=== PATIENT | female | born 1995 | race Caucasian/White ===

== ENCOUNTER 2021-05-07 19:03 | Emergency (ER) | payer SELFPAY ==
[~2021-05-07] VITALS: Ht 160 cm; Wt 65.9 kg
[2021-05-07] MEDS ORDERED: PRENTAB53 PO (19:19)
[2021-05-07 20:20] LABS: BASO % 0.1 % (0.0-1.0); EOS # 0.1 10^3/uL (0.0-0.5); EOS % 0.4 % (0.0-3.0); HEMATOCRIT 31.6 % (36.0-47.0); HEMOGLOBIN 11.4 g/dl (12.0-15.5); LYMPH # 1.6 10^3/uL (1.5-5.0); LYMPH % 10.1 % (24.0-44.0); MEAN CORPUSCULAR HEMOGLOBIN 30.9 pg (27.0-33.0); MEAN CORPUSCULAR HGB CONC 36.1 g/dl (32.0-36.5); MEAN CORPUSCULAR VOLUME 85.6 fl (80.0-96.0); MONO # 0.9 10^3/uL (0.0-0.8); MONO % 5.8 % (2.0-8.0); NEUTROPHILS # 12.8 10^3/uL (1.5-8.5); NEUTROPHILS % 83.2 % (36.0-66.0); PLATELET COUNT, AUTOMATED 239 10^3/uL (150-450); RED BLOOD COUNT 3.69 10^6/uL (4.00-5.40); WHITE BLOOD COUNT 15.4 10^3/uL (4.0-10.0)
[2021-05-07 20:59] LABS: BLOOD UREA NITROGEN 7 MG/DL (7-18); CALCIUM LEVEL 9.5 MG/DL (8.5-10.1); CARBON DIOXIDE LEVEL 24 MEQ/L (21-32); CHLORIDE LEVEL 107 MEQ/L (98-107); CREATININE FOR GFR 0.46 MG/DL (0.55-1.30); GLOMERULAR FILTRATION RATE > 60.0 (>60); GLUCOSE, FASTING 95 MG/DL (70-100); HCG, SERUM QUANTITATIVE 38954 MIU/ML; POTASSIUM SERUM 3.8 MEQ/L (3.5-5.1); SODIUM LEVEL 139 MEQ/L (136-145)
[2021-05-07] MEDS ORDERED: NS 1,000 ML IV ONE (21:10)
[2021-05-07 21:37] VITALS: BP 118/73
[2021-05-07] MEDS ORDERED: MACR100C43 PO (22:46)
== END 2021-05-07 23:23 | disposition home or self-care (01) ==
LOC: M ED 19:03
DX: O20.0 Threatened abortion (principal); N93.9 Abnormal uterine and vaginal bleeding, unspecified; N39.0 Urinary tract infection, site not specified; Z3A.14 14 weeks gestation of pregnancy

== ENCOUNTER 2021-07-30 06:19 | Inpatient (IN) | payer SELFPAY ==
[2021-07-30] VITALS (19 sets, daily range): BP systolic 90–159; BP diastolic 51–90
[~2021-07-30] VITALS: Ht 160 cm; Wt 75.0 kg
[~2021-07-30 06:19] MED LIST: MACR100C43 PO; PRENTAB53 PO
[2021-07-30] MEDS ORDERED: LR 1,000 ML IV ONE (06:35)
[2021-07-30 07:00] LABS: HEMATOCRIT 33.1 % (36.0-47.0); HEMOGLOBIN 11.7 g/dl (12.0-15.5); MEAN CORPUSCULAR HEMOGLOBIN 32.5 pg (27.0-33.0); MEAN CORPUSCULAR HGB CONC 35.3 g/dl (32.0-36.5); MEAN CORPUSCULAR VOLUME 91.9 fl (80.0-96.0); PLATELET COUNT, AUTOMATED 163 10^3/uL (150-450); WHITE BLOOD COUNT 10.8 10^3/uL (4.0-10.0)
[2021-07-30 07:16] LABS: INR 0.87; PROTHROMBIN TIME 12.2 SECONDS (12.7-14.5)
[2021-07-30 07:32] LABS: ALBUMIN 3.1 GM/DL (3.2-5.2); ALT/SGPT 17 U/L (12-78); BILIRUBIN,TOTAL 0.2 MG/DL (0.2-1.0); BLOOD UREA NITROGEN 5 MG/DL (7-18); CALCIUM LEVEL 8.8 MG/DL (8.5-10.1); CARBON DIOXIDE LEVEL 23 MEQ/L (21-32); CHLORIDE LEVEL 109 MEQ/L (98-107); CREATININE FOR GFR 0.42 MG/DL (0.55-1.30); GLOMERULAR FILTRATION RATE > 60.0 (>60); GLUCOSE, FASTING 111 MG/DL (70-100); POTASSIUM SERUM 3.6 MEQ/L (3.5-5.1); SODIUM LEVEL 140 MEQ/L (136-145); TOTAL PROTEIN 6.7 GM/DL (6.4-8.2)
[2021-07-30] MEDS: BETAMETHASONE SOLUSPAN 6MG/ML 5ML VIAL (J0702 PER 3MG) IM SCH (07:43)
[2021-07-30] MEDS ORDERED: NIFEdipine 10 MG CAP PO ONE (08:50)
[2021-07-30] MEDS: LR 1,000 ML IV SCH ×2 (09:30→15:53)
[2021-07-30] MEDS ORDERED: NIFEdipine 10 MG CAP PO SCH ×2 (11:15→13:00)
[2021-07-30] MEDS ORDERED: BUTORPHANOL 2 MG/ML INJ (J0595) IV ONE (12:40)
[2021-07-30] MEDS ORDERED: PROMETHAZINE 25MG/ML 1ML VIAL IV PRN (12:40)
[2021-07-30] MEDS: NIFEdipine 10 MG CAP PO SCH ×3 (15:53→23:14)
[2021-07-31] VITALS (21 sets, daily range): BP systolic 91–146; BP diastolic 51–75
[2021-07-31] MEDS: LR 1,000 ML IV SCH ×3 (02:12→17:15)
[2021-07-31] MEDS: NIFEdipine 10 MG CAP PO SCH ×6 (03:20→23:34)
[2021-07-31] MEDS: BETAMETHASONE SOLUSPAN 6MG/ML 5ML VIAL (J0702 PER 3MG) IM SCH (07:55)
[2021-07-31] MEDS ORDERED: ACETAMINOPHEN 500 MG TAB PO PRN (18:25)
[2021-08-01] VITALS (15 sets, daily range): BP systolic 79–115; BP diastolic 50–69
[2021-08-01 06:42] LABS: HEMATOCRIT 32.5 % (36.0-47.0); HEMOGLOBIN 10.9 g/dl (12.0-15.5); MEAN CORPUSCULAR HEMOGLOBIN 31.7 pg (27.0-33.0); MEAN CORPUSCULAR HGB CONC 33.5 g/dl (32.0-36.5); MEAN CORPUSCULAR VOLUME 94.5 fl (80.0-96.0); PLATELET COUNT, AUTOMATED 170 10^3/uL (150-450); RED BLOOD COUNT 3.44 10^6/uL (4.00-5.40)
== END 2021-08-01 11:15 | DRG 566 ==
LOC: M LDO 06:19 → M LDI 06:40
PROVIDERS: ADMIT Obstetrics & Gynecology; ATTEND Obstetrics & Gynecology
DX: O45.92 Premature separation of placenta, unspecified, second trimester (principal); O98.512 Other viral diseases complicating pregnancy, second trimester; U07.1 COVID-19; O34.211 Maternal care for low transverse scar from previous cesarean delivery; O99.512 Diseases of the respiratory system complicating pregnancy, second trimester; Z3A.25 25 weeks gestation of pregnancy; O34.02 Maternal care for unspecified congenital malformation of uterus, second trimester

== ENCOUNTER 2023-09-26 16:25 | Emergency (ER) | payer SELFPAY ==
[~2023-09-26] VITALS: Ht 162.6 cm; Wt 75.0 kg
[2023-09-26] MEDS ORDERED: FERR325T3 PO (16:45)
[2023-09-26 18:13] LABS: BASO % 0.2 % (0.0-1.0); EOS % 0.3 % (0.0-3.0); HEMOGLOBIN 11.9 g/dl (12.0-15.5); LYMPH # 2.3 10^3/uL (1.5-5.0); LYMPH % 17.3 % (24.0-44.0); MEAN CORPUSCULAR HEMOGLOBIN 31.2 pg (27.0-33.0); MEAN CORPUSCULAR HGB CONC 36.1 g/dl (32.0-36.5); MEAN CORPUSCULAR VOLUME 86.4 fl (80.0-96.0); MONO # 0.9 10^3/uL (0.0-0.8); MONO % 6.8 % (2.0-8.0); NEUTROPHILS % 75.1 % (36.0-66.0); PLATELET COUNT, AUTOMATED 238 10^3/uL (150-450); RED BLOOD COUNT 3.82 10^6/uL (4.00-5.40); WHITE BLOOD COUNT 13.3 10^3/uL (4.0-10.0)
[2023-09-26 18:25] LABS: BLOOD UREA NITROGEN 13 MG/DL (9-23); CALCIUM LEVEL 9.3 MG/DL (8.5-10.1); CARBON DIOXIDE LEVEL 23 MMOL/L (20-31); CHLORIDE LEVEL 104 MMOL/L (98-107); CREATININE FOR GFR 0.56 MG/DL (0.55-1.30); GLOMERULAR FILTRATION RATE > 60.0 (>60); GLUCOSE, FASTING 109 MG/DL (60-100); POTASSIUM SERUM 3.5 MMOL/L (3.5-5.1); SODIUM LEVEL 136 MMOL/L (136-145)
[2023-09-26 18:41] LABS: HCG, SERUM QUANTITATIVE 62505.4 MIU/ML (<4.2)
[2023-09-26 20:55] VITALS: O2SAT 99
[2023-09-26 21:00] VITALS: BP 106/61; TEMP 98.6
== END 2023-09-26 21:29 | disposition home or self-care (01) ==
LOC: M ED 16:25
DX: O26.851 Spotting complicating pregnancy, first trimester (principal); Z3A.13 13 weeks gestation of pregnancy; Z79.899 Other long term (current) drug therapy

== ENCOUNTER 2023-10-05 16:06 | Observation (INO) | payer SELFPAY ==
[2023-10-05] VITALS (15 sets, daily range): BP systolic 76–105; BP diastolic 38–59; TEMP 96.6; O2SAT 100
[~2023-10-05] VITALS: Ht 165.1 cm; Wt 79.5 kg
[~2023-10-05 16:06] MED LIST changes: +FERR325T3 PO
[2023-10-05] MEDS: NS 1,000 ML IV ONE (16:25)
[2023-10-05 16:49] LABS: BASO % 0.1 % (0.0-1.0); HEMATOCRIT 28.5 % (36.0-47.0); HEMOGLOBIN 10.2 g/dl (12.0-15.5); LYMPH # 0.6 10^3/uL (1.5-5.0); LYMPH % 3.3 % (24.0-44.0); MEAN CORPUSCULAR HGB CONC 35.8 g/dl (32.0-36.5); MEAN CORPUSCULAR VOLUME 86.6 fl (80.0-96.0); MONO # 0.8 10^3/uL (0.0-0.8); MONO % 4.2 % (2.0-8.0); NEUTROPHILS # 16.5 10^3/uL (1.5-8.5); NEUTROPHILS % 91.5 % (36.0-66.0); PLATELET COUNT, AUTOMATED 249 10^3/uL (150-450); RED BLOOD COUNT 3.29 10^6/uL (4.00-5.40)
[2023-10-05 17:06] LABS: PARTIAL THROMBOPLASTIN TIME 26.9 SECONDS (24.8-34.2); PROTHROMBIN TIME 12.9 SECONDS (12.5-14.5)
[2023-10-05 17:13] LABS: ALBUMIN 3.4 G/DL (3.2-5.2); ALKALINE PHOSPHATASE 61 U/L (46-116); ALT/SGPT 14 U/L (7.0-40); AST/SGOT 9 U/L (<34); BILIRUBIN,DIRECT 0.1 MG/DL (<0.4); BILIRUBIN,TOTAL 0.4 MG/DL (0.3-1.2); BLOOD UREA NITROGEN 6 MG/DL (9-23); CALCIUM LEVEL 9.3 MG/DL (8.5-10.1); CARBON DIOXIDE LEVEL 19 MMOL/L (20-31); CHLORIDE LEVEL 102 MMOL/L (98-107); CREATININE FOR GFR 0.46 MG/DL (0.55-1.30); GLOMERULAR FILTRATION RATE > 60.0 (>60); GLUCOSE, FASTING 125 MG/DL (60-100); POTASSIUM SERUM 3.3 MMOL/L (3.5-5.1); SODIUM LEVEL 134 MMOL/L (136-145); TOTAL PROTEIN 6.8 G/DL (5.7-8.2)
[2023-10-05] MEDS ORDERED: CARBOPROST TROMETHAMINE 250 MCG/ML AMP IM PRN (17:25)
[2023-10-05] MEDS ORDERED: METHYLERGONOVINE MALEATE 0.2MG/ML 1ML VIAL IM PRN (17:25)
[2023-10-05] MEDS ORDERED: TRANEXAMIC ACID INJection 1,000 MG in NS 100 ML IV PRN (17:25)
[2023-10-05] MEDS: LR 1,000 ML IV SCH (17:25)
[2023-10-05] MEDS: PROMETHAZINE 25MG/ML 1ML VIAL IV ONE (17:47)
[2023-10-05] MEDS: LACTATED RINGER'S 1000 ML IV STA (17:48)
[2023-10-05] MEDS: BUTORPHANOL 2 MG/ML 1ML VIAL IV ONE (17:48)
[2023-10-06] VITALS (22 sets, daily range): BP systolic 74–128; BP diastolic 35–67
[2023-10-06 06:34] LABS: HEMATOCRIT 24.5 % (36.0-47.0); HEMOGLOBIN 8.8 g/dl (12.0-15.5); MEAN CORPUSCULAR HEMOGLOBIN 31.2 pg (27.0-33.0); MEAN CORPUSCULAR HGB CONC 35.9 g/dl (32.0-36.5); MEAN CORPUSCULAR VOLUME 86.9 fl (80.0-96.0); PLATELET COUNT, AUTOMATED 223 10^3/uL (150-450); RED BLOOD COUNT 2.82 10^6/uL (4.00-5.40); WHITE BLOOD COUNT 18.2 10^3/uL (4.0-10.0)
[2023-10-06 06:44] LABS: INR 1.09; PARTIAL THROMBOPLASTIN TIME 29.2 SECONDS (24.8-34.2); PROTHROMBIN TIME 13.8 SECONDS (12.5-14.5)
[2023-10-06] MEDS: IBUPROFEN 800 MG TAB PO ONE (15:01)
[2023-10-06 15:08] LABS: HEMATOCRIT 25.9 % (36.0-47.0); HEMOGLOBIN 9.1 g/dl (12.0-15.5); MEAN CORPUSCULAR HEMOGLOBIN 31.6 pg (27.0-33.0); MEAN CORPUSCULAR HGB CONC 35.1 g/dl (32.0-36.5); MEAN CORPUSCULAR VOLUME 89.9 fl (80.0-96.0); PLATELET COUNT, AUTOMATED 247 10^3/uL (150-450); RED BLOOD COUNT 2.88 10^6/uL (4.00-5.40); WHITE BLOOD COUNT 15.7 10^3/uL (4.0-10.0)
== END 2023-10-06 13:23 | disposition home or self-care (01) ==
LOC: M ED 16:06 → M ED INP 17:25 → M LDI 17:26
PROVIDERS: ADMIT Advanced Practice Midwife; ATTEND Advanced Practice Midwife
DX: O60.00 Preterm labor without delivery, unspecified trimester (principal); O34.599 Maternal care for other abnormalities of gravid uterus, unspecified trimester; O20.8 Other hemorrhage in early pregnancy; Z3A.14 14 weeks gestation of pregnancy
CPT/HCPCS: 36415; 76801; 80047; 80048; 80076; 84702; 85025; 85027; 85384; 85610; 85730; 86850; 86900; 86901; 87210; 93041; 96374; 96375; 96376; 99285; G0463; J0595; J2550